=== PATIENT | female | born 2000 | race African-American/Black ===

== ENCOUNTER 2023-06-19 09:17 | Emergency (ER) | payer OTHER, SELFPAY ==
[2023-06-19] MEDS ORDERED: Ketorolac Tromethamine 30 MG/ML VIAL ONE (11:11)
[2023-06-19] MEDS ORDERED: Dexamethasone 10 MG/ML VIAL ONE (11:11)
[2023-06-19 12:32] LABS: SARS-CoV-2 NAA Rapid Test Not Detected (NotDetected)
== END 2023-06-19 12:10 | disposition home or self-care (01) ==
LOC: CSHERS 09:17
DX: J02.9 Acute pharyngitis, unspecified (principal); Z20.822 Contact with and (suspected) exposure to COVID-19
CPT/HCPCS: 87081; 87430; 96372; 99283; J1100; J1885